=== PATIENT | female | born 1995 | race Caucasian/White ===

== ENCOUNTER → 2019-07-18 | Outpatient (REF) | payer OTHER ==
[2019-07-18 15:35] LABS: HEMATOCRIT 41.5 % (36.0-47.0); HEMOGLOBIN 13.6 g/dl (12.0-15.5); MEAN CORPUSCULAR HEMOGLOBIN 30.2 pg (27.0-33.0); MEAN CORPUSCULAR HGB CONC 32.8 g/dl (32.0-36.5); MEAN CORPUSCULAR VOLUME 92.2 fl (80.0-96.0); PLATELET COUNT, AUTOMATED 294 10^3/uL (150-450)
[2019-07-18 16:27] LABS: HEPATITIS B SURFACE ANTIGEN NEGATIVE (NEGATIVE); HIV 1&2 SCREEN CENTAUR NEGATIVE (NEGATIVE)
[2019-07-18 17:00] LABS: CHLAMYDIA DNA AMPLIFICATION NEGATIVE (NEGATIVE); GC DNA AMPLIFICATION NEGATIVE (NEGATIVE)
== END ==
LOC: M PLALAB 13:53
PROVIDERS: ATTEND Advanced Practice Midwife
DX: Z34.91 Encounter for supervision of normal pregnancy, unspecified, first trimester (principal)

== ENCOUNTER → 2019-07-25 | Outpatient (CLI) | payer OTHER ==
--- NOTE | 2019-07-26 02:48 | REP ---
Clinical: Dating and viability. Technique: Transabdominal first trimester obstetrical ultrasound with color Doppler evaluation. Findings: Examination demonstrates diamniotic dichorionic twin gestation. Gestational age by current measurements at 11 weeks 6 days with estimated date of delivery 02/07/2020. Fetus A: CRL of 5.2 cm corresponds to 11-week 6 days gestational age. heart rate equals 155 beats per minute. Fetus B: CRL of 5.2 cm corresponds to 11-week 6 days gestational age. heart rate equals 163 beats per minute. Impression: Early diamniotic dichorionic twin gestation with estimated age at 11 weeks 6 days.
== END ==
LOC: M WHC 10:23 → EDUNIT# 11:30
PROVIDERS: ATTEND Advanced Practice Midwife
DX: O30.099 Twin pregnancy, unable to determine number of placenta and number of amniotic sacs, unspecified trimester (principal)

== ENCOUNTER → 2019-09-13 | Outpatient (CLI) | payer OTHER ==
--- NOTE | 2019-09-13 12:53 | REP ---
REASON: Twin gestation, anatomy. Multiple ultrasonographic images of the gravid uterus show a diamniotic, dichorionic twin gestation, the placenta of which for twin A is posterior and for twin B is anterior. The placentas are not low-lying. The cervix measures 3.9 cm in length and is closed. TWIN A: Doppler interrogation of the heart if twin A shows a heart rate of 140 beats per minute. The subjective amniotic fluid volume is within normal limits. Twin A is in the cephalic presentation. Evaluation of the maternal adnexal space shows no abnormalities. TWIN B: Twin B is in the transverse head to the maternal right position. Doppler interrogation of the heart of twin B shows a heart rate of 153 beats per minute. The subjective amniotic fluid volume is within normal limits. CHART, TWIN A: BPD 4.3 cm = 19 weeks 0 days HC 15.4 cm = 18 weeks 3 days AC 13.6 cm = 19 weeks 0 days FL 2.9 cm = 19 weeks 0 days The estimated weight is 263 grams which is at the 41st percentile for a 17-weqa-4-day gestational age. anatomical structures seen as unremarkable are as follows: Thalami, cavum septum pellucidum, cerebellum, cisterna magna, cerebral ventricles, upper lip, stomach, cord insertion, three-vessel umbilica cord, kidneys, bladder, spine, and upper and lower extremities. Four chamber heart and ventricular outflow tracts were suboptimally visualized. CHART, TWIN B: BPD 4.3 cm = 19 weeks 0 days HC 15.3 cm = 18 weeks 2 days AC 13.5 cm = 19 weeks 0 days FL 3.0 cm = 19 weeks 1 days The estimated weight is 266 grams which is at the 41st percentile for a 79-kekf-6-day gestational age. anatomical structures seen as unremarkable are as follows: Thalami, cavum septum pellucidum, cerebellum, cisterna magna, cerebral ventricles, upper lip, left ventricular outflow tract, stomach, cord insertion, three-vessel umbilica cord, kidneys, bladder and upper and lower extremities. Structures suboptimally visualized are as follows: Four-chamber heart, right ventricular outflow tract, and spine. IMPRESSION: Dichorionic, diamniotic twin gestation as described above with the estimated gestational age having only been calculated from the first ultrasound by the technologist performing the exam of 19 weeks 0 days and based on that the EARLINE is 02/07/2020. No estimated gestational age was calculated by the largest twin's bionic tree measurements today. The reason the technologist did not perform that function is unknown to me. No anomalies were detected, however, I recommend a followup examination to better visualized those anatomical structures not seen in both twin A and twin B as described above.
== END ==
LOC: M WHC 07:37
PROVIDERS: ATTEND Advanced Practice Midwife
DX: O30.049 Twin pregnancy, dichorionic/diamniotic, unspecified trimester (principal); Z3A.19 19 weeks gestation of pregnancy

== ENCOUNTER → 2019-09-13 | Outpatient (REF) | payer OTHER | LOC: M SFHCWAGY 17:28 | PROVIDERS: ATTEND Advanced Practice Midwife | DX: O30.042 Twin pregnancy, dichorionic/diamniotic, second trimester (principal) ==